=== PATIENT | female | born 1980 | race Caucasian/White ===

== ENCOUNTER 2018-04-11 10:01 | Outpatient (CLI) | payer OTHER | END 2018-04-11 10:09 | disposition home or self-care (01) | LOC: SONOGRAMA 10:01 | DX: E04.1 Nontoxic single thyroid nodule (principal) ==

== ENCOUNTER 2020-06-21 10:32 | Outpatient (CLI) | payer OTHER | END 2020-06-21 10:39 | disposition home or self-care (01) | LOC: RAD 10:32 → RX STUDY 06-22 10:35 | PROVIDERS: ATTEND Obstetrics & Gynecology | DX: Z31.41 Encounter for fertility testing (principal) ==

== ENCOUNTER 2021-08-30 15:24 | Emergency (ER) | payer OTHER ==
[~2021-08-30] VITALS: Ht 162.6 cm; Wt 88.9 kg
[2021-08-30] MEDS ORDERED: SYNTHROID175 MCG (15:54)
== END 2021-08-30 19:57 | disposition home or self-care (01) ==
LOC: ER 15:24
DX: K52.9 Noninfective gastroenteritis and colitis, unspecified (principal); Z88.8 Allergy status to other drugs, medicaments and biological substances; E03.9 Hypothyroidism, unspecified